=== PATIENT | male | born 1990 | race Caucasian/White ===

== ENCOUNTER 2022-03-16 10:27 | Emergency (ER) | payer SELFPAY ==
--- NOTE | 2022-03-16 11:46 | RAD REPORT ---
EXAM DESCRIPTION: CT - Thorax Wo Con CLINICAL HISTORY: Chest pain rib fractures/surgery/chest tube 1.5 months ago, new right sided pain COMPARISON: No comparisons FINDINGS: The lungs are clear. No pleural thickening or pleural effusion. No pneumothorax. No axillary, mediastinal or hilar adenopathy. Old bilateral rib fractures are noted. Hardware is present spanning several ribs on the right. No com plication evident. All CT scans are performed using dose optimization technique as appropriate and may include automated exposure control or mA/KV adjustment according to patient size. IMPRESSION: No acute intrathoracic abnormality.
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
[2022-03-16 14:10] VITALS: BP 142/103; TEMP 98.5; O2SAT 100
== END 2022-03-16 13:56 | disposition home or self-care (01) ==
LOC: ER 10:27
DX: R07.89 Other chest pain (principal); F17.210 Nicotine dependence, cigarettes, uncomplicated
CPT/HCPCS: 71250; 99283